=== PATIENT | female | born 1990 | race Caucasian/White ===

== ENCOUNTER 2021-04-28 20:43 | Emergency (ER) | payer MEDICAID ==
--- NOTE | 2021-04-28 21:20 | EDM.PDOC ---
ED HPI GENERAL MEDICAL PROBLEM - General Chief Complaint: ENT Problem Stated Complaint: SORE THROAT, DIFFICULTY SWALLOWING, SHORT OF BREAT Time Seen by Provider: 04/28/21 21:19 Source of Information: Reports: Patient History Limitations: Reports: No Limitations - History of Present Illness INITIAL COMMENTS - FREE TEXT/NARRATIVE: Patient comes emergency department today with complaints of a sore throat. The patient had an itchy scratchy sore throat last night. Today she has more of a globus sensation in her throat. She has no difficulty breathing no difficulty swallowing. No drooling. No fever no chills. No ear pain no sinus congestion. No cough congestion of her chest. No difficulty breathing. No chest pain. Throat Pain Score (Numeric/FACES): 6 - Related Data Allergies Allergy/AdvReac Type Severity Reaction Status Date / Time bee venom protein (honey bee) Allergy Anaphylactic Verified 04/28/21 21:21 Shock Home Meds: Home Meds . [No Known Home Meds] 04/28/21 [History] ED ROS ENT - Review of Systems Review Of Systems: Comprehensive ROS is negative, except as noted in HPI. ED EXAM, ENT - Physical Exam Exam: See Below Exam Limited By: No Limitations General Appearance: Alert, WD/WN, No Apparent Distress Eye Exam: Bilateral Eye: EOMI, PERRL Ears: Normal External Exam, Normal Canal, Normal TMs Nose: No: Normal Inspection (There is quite a bit of nasal turbinate hypertrophy. Small amount of rhinorrhea. No erythema.) Mouth/Throat: Normal Inspection, Normal Gums, Normal Lips, Normal Teeth. No: Normal Oropharynx (Posterior pharynx has cobblestoning and is very covered with pink salmon-colored vesicles consistent with postnasal drip. No erythema injection or drainage), Drooling, Peritonsillar Mass, Pharyngeal Erythema, Teething, Throat Pain, Throat Swelling, Tongue Swelling, Tonsillar Erythema, Tonsillar Exudates, Tonsillar Swelling, Uvular Deviation, Uvular Edema Head: Atraumatic, Normocephalic Neck: Normal Inspection, Supple, Non-Tender. No: Lymphadenopathy (L), Lymphadenopathy (R) Respiratory/Chest: No Respiratory Distress, Lungs Clear, Normal Breath Sounds, No Accessory Muscle Use, Chest Non-Tender Cardiovascular: Normal Peripheral Pulses, Regular Rate, Rhythm GI/Abdominal: Normal Bowel Sounds, Soft, Non-Tender (Female) Exam: Deferred Rectal (Female) Exam: Deferred Back: Normal Inspection Extremities: Normal Inspection, No Pedal Edema, Normal Capillary Refill Neurological: Alert, Oriented, Normal Cognition, Normal Gait, No Motor/Sensory Deficits Psychiatric: Normal Affect, Normal Mood Skin: Warm, Dry, Intact, Normal Color, No Rash Lymphatic: No Adenopathy Course - Vital Signs Last Recorded V/S: Last Vital Signs Temp 99.1 F 04/28/21 21:18 Pulse 91 04/28/21 21:18 Resp 12 04/28/21 21:18 BP 119/85 04/28/21 21:18 Pulse Ox 99 04/28/21 21:18 - Orders/Labs/Meds Orders: Active Orders 24 hr Category Date Time Status CULTURE STREP A CONFIRMATION [RM] Stat Lab 04/28/21 21:00 Results STREP SCRN A RAPID W CULT CONF [RM] Stat Lab 04/28/21 21:00 Results Isolation [COMM] Routine Oth 04/28/21 21:05 Active Labs: Laboratory Tests 04/28/21 Range/Units 21:00 SARS-CoV-2 Ag (Rapid) Negative (NEGATIVE) Microbiology 04/28/21 21:00 Nasal Aspirate, Left Influenza Type A Antigen Screen - Final NEGATIVE INFLUENZA A VIRUS AG REFERENCE RANGE: NEGATIVE 04/28/21 21:00 Nasal Aspirate, Left Influenza Type B Antigen Screen - Final NEGATIVE INFLUENZA B VIRUS AG REFERENCE RANGE: NEGATIVE 04/28/21 21:00 Throat Group A Streptococcus Rapid Screen - Final NEGATIVE STREP A SCREEN REFERENCE RANGE: NEGATIVE Meds: Medications Discontinued Medications Generic Name Dose Route Start Last Admin Trade Name Ricardoq PRN Reason Stop Dose Admin Al Hydroxide/Mg Hydroxide 30 ml 04/28/21 21:39 04/28/21 21:52 Gi Cocktail Oral Solution 30 Ml PO 04/28/21 21:40 30 ml ONETIME ONE Administration Dexamethasone 10 mg 04/28/21 21:39 04/28/21 21:52 Dexamethasone 2 Mg Tab PO 04/28/21 21:40 10 mg ONETIME ONE Administration Dexamethasone Confirm 04/28/21 21:55 Dexamethasone 2 Mg Tab Administered 04/28/21 21:56 Dose 2 mg .ROUTE .STK-MED ONE - Re-Assessments/Exams Free Text/Narrative Re-Assessment/Exam: 04/28/21 22:27 Patient was given a GI cocktail with improvement of the sensation in her throat. Influenza strep Covid negative. This really is a sequelae of postnasal drip causing her globus sensation. She was given some dexamethasone in the emergency department. We will treat her with Flonase nasal spray. As well as other symptomatic management. Anything new or worse she is to recheck. Discharge directions as below are explained to the patient she is comfortable with this plan and her questions were answered. Departure - Departure Time of Disposition: 22:22 Disposition: Home, Self-Care 01 Clinical Impression: PND (post-nasal drip), Sore throat - Discharge Information Instructions: Sore Throat, [id number] Referrals: Albert Castano PA [Primary Care Provider] - Forms: ED Department Discharge Additional Instructions: Increase fluids as much possible of the next couple of days. Tylenol ibuprofen as needed for pain discomfort. Warm salt gargle water as needed pain. Flonase 2 sprays each nostril once daily for the next 7 days. Then 1 spray each nostril daily until symptoms resolve. Return to the emergency department new or worsening symptoms. Follow-up primary care provider in the next 4-6 days if not improving sooner if worse. Sepsis Event Note (ED) - Focused Exam Vital Signs: Vital Signs Temp Pulse Resp BP Pulse Ox 04/28/21 21:18 99.1 F 91 12 119/85 99 - My Orders Last 24 Hours: My Active Orders 04/28/21 21:00 CULTURE STREP A CONFIRMATION [RM] Stat STREP SCRN A RAPID W CULT CONF [RM] Stat 04/28/21 21:05 Isolation [COMM] Routine - Assessment/Plan Last 24 Hours: My Active Orders 04/28/21 21:00 CULTURE STREP A CONFIRMATION [RM] Stat STREP SCRN A RAPID W CULT CONF [RM] Stat 04/28/21 21:05 Isolation [COMM] Routine
[2021-04-28] MEDS ORDERED: GI Cocktail Oral Solution 30 ML PO ONE (21:39)
[2021-04-28] MEDS ORDERED: Dexamethasone 2 MG Tab PO ONE (21:39)
[2021-04-28] MEDS ORDERED: Dexamethasone 2 MG Tab ONE (21:55)
== END 2021-04-28 22:30 | disposition home or self-care (01) ==
LOC: LL.ED 20:43
DX: J02.9 Acute pharyngitis, unspecified (principal); R09.82 Postnasal drip; Z91.030 Bee allergy status; Z20.822 Contact with and (suspected) exposure to COVID-19
CPT/HCPCS: 87081; 87426; 87430; 87804; 99283; A9270-GY; J8540

== ENCOUNTER 2021-05-05 19:43 | Emergency (ER) | payer MEDICAID ==
[2021-05-05] MEDS ORDERED: Acetaminophen 325 MG Tab PO ONE (20:14)
--- NOTE | 2021-05-05 20:14 | EDM.PDOC ---
ED HPI GENERAL MEDICAL PROBLEM - General Chief Complaint: General Stated Complaint: Sore Throat Time Seen by Provider: 05/05/21 19:57 Source of Information: Reports: Patient History Limitations: Reports: No Limitations - History of Present Illness INITIAL COMMENTS - FREE TEXT/NARRATIVE: Patient comes to ER with complaint of sore throat/plugged ears/ear discomfort. Both patient and her daughter had cold symptoms develop one week ago. Negative strep/Covid tests. Daughter is better. Patient's cough is better. Patient is unhappy that these other symptoms have not improved. Is mouth breathing at night due to continued nasal congestion. No fevers. No drainage from ears. No GI changes. Took Tylenol this morning but no other cold medications since then. - Related Data Allergies Allergy/AdvReac Type Severity Reaction Status Date / Time bee venom protein (honey bee) Allergy Anaphylactic Verified 04/28/21 21:21 Shock Home Meds: Home Meds . [No Known Home Meds] 04/28/21 [History] Past Medical History - Past Health History Medical/Surgical History: Denies Medical/Surgical History Social & Family History - Family History Family Medical History: No Pertinent Family History ED ROS GENERAL - Review of Systems Review Of Systems: See Below Constitutional: Reports: No Symptoms HEENT: Reports: Ear Pain, Rhinitis, Throat Pain. Denies: Dental Pain, Ear Discharge, Eye Discharge, Eye Pain, Sinus Problem, Throat Swelling, Vertigo, Vision Change Respiratory: Reports: Cough (improving) Cardiovascular: Reports: No Symptoms Endocrine: Reports: No Symptoms GI/Abdominal: Reports: No Symptoms : Reports: No Symptoms Musculoskeletal: Reports: No Symptoms Skin: Reports: No Symptoms Neurological: Reports: No Symptoms Psychiatric: Reports: No Symptoms Hematologic/Lymphatic: Reports: No Symptoms ED EXAM, GENERAL - Physical Exam Exam: See Below Exam Limited By: No Limitations General Appearance: Alert, WD/WN, No Apparent Distress Eye Exam: Bilateral Eye: EOMI, PERRL Ears: Normal External Exam, Normal Canal, Hearing Grossly Normal Ear Exam: Bilateral Ear: Other (clear fluid noted behind TMs) Nose: Normal Inspection Throat/Mouth: Normal Inspection, Normal Lips, Normal Oropharynx, Normal Voice, No Airway Compromise Head: Atraumatic, Normocephalic Neck: Normal Inspection, Supple, Non-Tender, Full Range of Motion. No: Lymphadenopathy (L), Lymphadenopathy (R) Respiratory/Chest: No Respiratory Distress, Lungs Clear, Normal Breath Sounds, No Accessory Muscle Use Cardiovascular: Regular Rate, Rhythm, No Murmur GI/Abdominal: Soft, Non-Tender Back Exam: No: Muscle Spasm Extremities: Normal Inspection, Normal Capillary Refill Neurological: Alert, Oriented, Normal Cognition, Normal Gait, No Motor/Sensory Deficits Psychiatric: Normal Affect, Normal Mood Skin Exam: Warm, Dry, Intact, Normal Color Course - Orders/Labs/Meds Orders: Active Orders 24 hr Category Date Time Status STREP SCRN A RAPID W CULT CONF [RM] Stat Lab 05/05/21 20:26 Ordered Meds: Medications Discontinued Medications Generic Name Dose Route Start Last Admin Trade Name Freq PRN Reason Stop Dose Admin Acetaminophen 650 mg 05/05/21 20:14 05/05/21 20:23 Acetaminophen 325 Mg Tab PO 05/05/21 20:15 650 mg NOW ONE Administration - Re-Assessments/Exams Free Text/Narrative Re-Assessment/Exam: 05/05/21 20:20 Unremarkable exam except for serous otitis. No indications for antibiotics at this time. Patient reassured that it can take weeks for viral symptoms to improve/resolve. She may need referral to ENT if the fluid in her ears does not improve. Rapid strep negative. Departure - Departure Time of Disposition: 20:12 Disposition: Home, Self-Care 01 Condition: Good Clinical Impression: Fluid level behind tympanic membrane of both ears URI (upper respiratory infection) Qualifiers: URI type: unspecified URI Qualified Code(s): J06.9 - Acute upper respiratory infection, unspecified - Discharge Information *PRESCRIPTION DRUG MONITORING PROGRAM REVIEWED*: Not Applicable *COPY OF PRESCRIPTION DRUG MONITORING REPORT IN PATIENT LIZA: Not Applicable Instructions: Upper Respiratory Infection, Adult Referrals: Albert Castano PA [Primary Care Provider] - Forms: ED Department Discharge Additional Instructions: See if Mucinex and/or Sudafed help with the ear discomfort. We will call you if the strep test/back up culture is positive. Give yourself another week to recover from the illness. Follow up at clinic if no improvement by the 14 day kassandra. Follow up otherwise as needed. - My Orders Last 24 Hours: My Active Orders 05/05/21 20:26 STREP SCRN A RAPID W CULT CONF [RM] Stat - Assessment/Plan Last 24 Hours: My Active Orders 05/05/21 20:26 STREP SCRN A RAPID W CULT CONF [RM] Stat
== END 2021-05-05 20:22 | disposition home or self-care (01) ==
LOC: LL.ED 19:43
DX: J06.9 Acute upper respiratory infection, unspecified (principal); H65.93 Unspecified nonsuppurative otitis media, bilateral; Z91.030 Bee allergy status
CPT/HCPCS: 87081; 87430; 99283; A9270-GY

== ENCOUNTER 2022-07-11 04:35 | Emergency (ER) | payer MEDICAID | END 2022-07-11 05:50 | disposition home or self-care (01) | LOC: LL.ED 04:35 | DX: F41.9 Anxiety disorder, unspecified (principal); K21.9 Gastro-esophageal reflux disease without esophagitis; Z91.030 Bee allergy status | CPT/HCPCS: 82947; 99283 ==

== ENCOUNTER 2022-08-28 12:52 | Emergency (ER) | payer MEDICAID ==
[2022-08-28] MEDS ORDERED: Acetaminophen 325 MG Tab PO ONE (13:03)
[2022-08-28 14:01] LABS: ANION GAP 9.8 meq/L (7-15)
[2022-08-28 14:02] LABS: CORONAVIRUS COVID-19 NAA NEGATIVE (NEGATIVE); RESPIRATORY SYNCYTIAL VIR NAA NEGATIVE (NEGATIVE)
[2022-08-28] MEDS ORDERED: Amoxicillin 250 MG Cap PO ONE (14:08)
[2022-08-28] MEDS ORDERED: [UNRECOGNIZED DRUG - OTHER] PO ONE (14:12)
== END 2022-08-28 14:45 | disposition home or self-care (01) ==
LOC: LL.ED 12:52
DX: J02.0 Streptococcal pharyngitis (principal); R65.10 Systemic inflammatory response syndrome (SIRS) of non-infectious origin without acute organ dysfunction; Z91.030 Bee allergy status; Z20.822 Contact with and (suspected) exposure to COVID-19
CPT/HCPCS: 0241U; 36415; 80053; 82550; 83605; 85025; 87430; 99283; A9270-GY